=== PATIENT | male | born 1980 | race Asian ===

== ENCOUNTER 2018-08-20 00:21 | Emergency (ER) | payer OTHER ==
[2018-08-20 00:57] LABS: BASOPHILS # (AUTO) 0.1 10^3/uL (0.0-0.1); BASOPHILS % (AUTO) 0.9 %; EOSINOPHILS # (AUTO) 0.1 10^3/uL (0.0-0.7); EOSINOPHILS % (AUTO) 1.3 %; HGB - HEMOGLOBIN 13.4 g/dL (14.0-18.0); LYMPHOCYTES # (AUTO) 1.9 10^3/uL (1.5-3.5); LYMPHOCYTES % (AUTO) 18.9 %; MEAN CORPUSCULAR HEMOGLOBIN 28.1 pg (27.0-31.0); MEAN CORPUSCULAR HGB CONC 33.9 g/dL (32.0-36.0); MEAN PLATELET VOLUME 7.3 fL (7.4-11.4); MONOCYTES # (AUTO) 1.1 10^3/uL (0.0-1.0); MONOCYTES % (AUTO) 10.7 %; NEUTROPHILS # (AUTO) 6.9 10^3/uL (1.5-6.6); NEUTROPHILS % (AUTO) 68.2 %; PLT - PLATELET COUNT 371 10^3/uL (130-450); RED BLOOD COUNT 4.78 10^6/uL (4.70-6.10); RED CELL DISTRIBUTION WIDTH 14.1 % (12.0-15.0); WHITE BLOOD COUNT 10.1 x10^3/uL (4.8-10.8)
--- NOTE | 2018-08-20 01:05 | ED Physician Documentation ---
PD HPI ABD PAIN - Stated complaint Stated Complaint: ABD PX - Chief complaint Chief Complaint: Abd Pain - History obtained from History obtained from: Patient - History of Present Illness Timing - onset: How many weeks ago (2) Timing - duration: Weeks Timing - details: Gradual onset, Intermittant Quality: Pain Location: All over / everywhere Radiation: No: Chest, , Lower back, Left flank, Left shoulder, Right flank, Right shoulder, Upper back Improved by: Other (nothing) Worsened by: Eating (sometimes worse with PO intake) Associated symptoms: Nausea, Vomiting (x1), Diarrhea, Constipation. No: Fever Review of Systems Constitutional: reports: Reviewed and negative Cardiac: reports: Reviewed and negative Respiratory: reports: Reviewed and negative GI: reports: Abdominal Pain, Nausea, Vomiting, Constipation, Diarrhea : denies: Dysuria, Frequency PD PAST MEDICAL HISTORY - Past Medical History Past Medical History: No - Past Surgical History Past Surgical History: No - Present Medications Home Medications: Ambulatory Orders Medication Instructions Recorded Confirmed Ibuprofen 600 mg PO Q8HR PRN #14 tablet 08/20/18 - Allergies Allergies/Adverse Reactions: Allergies Allergy/AdvReac Type Severity Reaction Status Date / Time No Known Drug Allergies Allergy Verified 08/20/18 00:28 - Social History Does the pt smoke?: No Smoking Status: Former smoker Does the pt drink ETOH?: Yes Does the pt have substance abuse?: No - Immunizations Immunizations are current?: Yes - POLST Patient has POLST: No PD ED PE NORMAL - Vitals Vital signs reviewed: Yes - General General: Alert and oriented X 3, No acute distress, Well developed/nourished - HEENT HEENT: Moist mucous membranes - Cardiac Cardiac: RRR, No murmur - Respiratory Respiratory: No respiratory distress, Clear bilaterally - Abdomen Abdomen: Normal bowel sounds, Soft, Non tender, Non distended, No organomegaly - Derm Derm: Normal color, Warm and dry Results - Vitals Vitals: Oxygen O2 Source Room air - Labs Labs: Laboratory Tests 08/20/18 08/20/18 08/20/18 00:45 00:45 01:30 WBC 10.1 RBC 4.78 Hgb 13.4 L Hct 39.7 L MCV 83.0 MCH 28.1 MCHC 33.9 RDW 14.1 Plt Count 371 MPV 7.3 L Neut # (Auto) 6.9 H Lymph # (Auto) 1.9 [place] # (Auto) 1.1 H Eos # (Auto) 0.1 Baso # (Auto) 0.1 Absolute Nucleated RBC 0.00 Nucleated RBC % 0.0 Sodium 138 Potassium 3.5 Chloride 103 Carbon Dioxide 27 Anion Gap 8.0 BUN 18 Creatinine 0.8 Estimated GFR (MDRD) 109 Glucose 101 H Calcium 8.7 Total Bilirubin 0.3 AST 13 ALT 17 Alkaline Phosphatase 68 Total Protein 7.5 Albumin 4.0 Globulin 3.5 Albumin/Globulin Ratio 1.1 Amylase 209 H Lipase 500 H Urine Color Urine Clarity Urine pH Ur Specific [place] Urine Protein Urine Glucose (UA) Urine Ketones Urine Occult Blood Urine Nitrite Urine Bilirubin Urine Urobilinogen Ur Leukocyte Esterase Urine RBC Urine WBC Ur Squamous Epith Cells Urine Bacteria Urine Mucus Ur Microscopic Review Urine Culture Comments 08/20/18 01:30 WBC RBC Hgb Hct MCV MCH MCHC RDW Plt Count MPV Neut # (Auto) Lymph # (Auto) [place] # (Auto) Eos # (Auto) Baso # (Auto) Absolute Nucleated RBC Nucleated RBC % Sodium Potassium Chloride Carbon Dioxide Anion Gap BUN Creatinine Estimated GFR (MDRD) Glucose Calcium Total Bilirubin AST ALT Alkaline Phosphatase Total Protein Albumin Globulin Albumin/Globulin Ratio Amylase Lipase Urine Color YELLOW Urine Clarity CLEAR Urine pH 5.0 Ur Specific [place] >=1.030 H Urine Protein TRACE Urine Glucose (UA) NEGATIVE Urine Ketones NEGATIVE Urine Occult Blood SMALL H Urine Nitrite NEGATIVE Urine Bilirubin NEGATIVE Urine Urobilinogen 0.2 (NORMAL) Ur Leukocyte Esterase NEGATIVE Urine RBC 0-5 Urine WBC 0-3 Ur Squamous Epith Cells MOD Squamous H Urine Bacteria Rare Urine Mucus Marked Strands Ur Microscopic Review INDICATED Urine Culture Comments NOT INDICATED - Rads (name of study) CT A/P Radiology: Prelim report reviewed, See rad report PD MEDICAL DECISION MAKING - ED course Complexity details: reviewed results, re-evaluated patient, considered differential, d/w patient Departure - Departure Disposition: 01 Home, Self Care Clinical Impression: Abdominal pain, Pancreatitis Condition: Good Instructions: ED Pancreatitis Follow-Up: ANNE Morfin [Provider Group] (Call this morning to arrange for next available appointment) Prescriptions: Ibuprofen 600 mg PO Q8HR PRN #14 tablet PRN Reason: Pain Comments: You can take simethicone for gas/bloating. This is available [id number] and thus no prescription has been provided. Follow directions on product label. Forms: Activity restrictions Discharge Date/Time: 08/20/18 03:58
[2018-08-20 01:20] LABS: ALBUMIN/GLOBULIN RATIO 1.1 (1.0-2.2); BILIRUBIN,TOTAL 0.3 mg/dL (0.2-1.0); CALCIUM 8.7 mg/dL (8.5-10.3); CREATININE 0.8 mg/dL (0.6-1.2); TOTAL PROTEIN 7.5 g/dL (6.7-8.2)
[2018-08-20 01:34] LABS: BILIRUBIN,URINE NEGATIVE (NEGATIVE); CLARITY,URINE CLEAR (CLEAR); GLUCOSE, URINE (UA) NEGATIVE (NEGATIVE); KETONES,URINE (UA) NEGATIVE (NEGATIVE); LEUKOCYTE ESTERASE, URINE NEGATIVE (NEGATIVE); NITRITE,URINE NEGATIVE (NEGATIVE); OCCULT BLOOD,URINE SMALL (NEGATIVE); PROTEIN,URINE TRACE mg/dL (NEGATIVE); UROBILINOGEN,URINE 0.2 (NORMAL) E.U./dL (NORMAL)
[2018-08-20 01:36] LABS: RBC,URINE 0-5 /HPF (0-5)
[2018-08-20 01:37] LABS: BACTERIA,URINE Rare /HPF (None Seen); MUCUS,URINE Marked Strands; SQUAMOUS EPITHELIAL CELL,UR MOD Squamous (<= Few)
[2018-08-20] MEDS ORDERED: KETOROLAC 60 MG/2 ML VIAL IVP STA (02:11)
[2018-08-20] MEDS ORDERED: IOPAMIDOL-300 100 ML VIAL ONE (02:18)
[2018-08-20] MEDS ORDERED: IOPAMIDOL-300 100 ML VIAL IVP ONE (02:38)
--- NOTE | 2018-08-20 03:00 | CT Report ---
Reason: abd. pain, elevated lipase/amylase Procedure Date: 08/20/2018 Accession Number: [id number] / [id number] Procedure: CT - Abdomen/Pelvis W/ CPT Code: FULL RESULT: EXAM: CT ABDOMEN AND PELVIS EXAM DATE: 08/20/2018 02:48 AM. CLINICAL HISTORY: Abd. pain, elevated lipase/amylase. COMPARISONS: None. TECHNIQUE: Routine helical CT imaging was performed through the abdomen and pelvis. IV contrast: ISOVUE 300 100mL. Enteric contrast: No. Reconstructions: Coronal and sagittal. In accordance with CT protocol optimization, one or more of the following dose reduction techniques were utilized for this exam: automated exposure control, adjustment of mA and/or KV based on patient size, or use of iterative reconstructive technique. FINDINGS: Lung Bases: Unremarkable. Liver: Normal. No masses. Gallbladder/Bile Ducts: Unremarkable. Spleen: Normal. Pancreas: Normal. No pseudocyst, necrosis or peripancreatic inflammation. Adrenal Glands: Normal. Kidneys: Normal. No masses or hydronephrosis. Peritoneal Cavity/Bowel: Normal. No free fluid, free air or adenopathy. A few colonic diverticula are present, without CT evidence of diverticulitis. No masses or acute inflammatory process. The appendix is well visualized and normal. Pelvic Organs: Normal. The bladder and visualized pelvic organs are within normal limits. Vasculature: No aneurysms or other significant abnormality. Bones: No significant abnormality. Other: None. IMPRESSION: No evident complication of pancreatitis. No peripancreatic inflammation, pseudocyst, or necrosis. RADIA
[2018-08-20] MEDS ORDERED: SIMETHICONE CHEW 80 MG TABLET PO STA (03:41)
[2018-08-20 03:58] VITALS: BP 123/88
== END 2018-08-20 03:58 | disposition home or self-care (01) ==
LOC: ED 00:21
DX: K85.90 Acute pancreatitis without necrosis or infection, unspecified (principal); Z87.891 Personal history of nicotine dependence
CPT/HCPCS: 36415; 74177; 80053; 81001; 82150; 83690; 85025; 96374; 99283; 99284; A9270; Q9967; 81003; 87086

== ENCOUNTER 2018-10-25 14:05 | Outpatient (CLI) | payer OTHER ==
[2018-10-26 12:28] LABS: HEPATITIS A AB TOTAL(IMMUNITY) REACTIVE (NON-REACTIVE); HEPATITIS B CORE AB TOTAL NON-REACTIVE (NON-REACTIVE)
== END 2018-10-25 14:06 | disposition home or self-care (01) ==
LOC: LAB 14:05
PROVIDERS: ATTEND Internal Medicine
DX: K51.00 Ulcerative (chronic) pancolitis without complications (principal)
CPT/HCPCS: 36415; 86140; 86317; 86704; 86708

== ENCOUNTER 2018-12-28 17:07 | Emergency (ER) | payer OTHER ==
[2018-12-28 17:56] LABS: ALBUMIN 3.8 g/dL (3.2-5.5); ALBUMIN/GLOBULIN RATIO 0.8 (1.0-2.2); BILIRUBIN,TOTAL 0.7 mg/dL (0.2-1.0); CALCIUM 8.8 mg/dL (8.5-10.3); TOTAL PROTEIN 8.4 g/dL (6.7-8.2)
[2018-12-28 17:58] LABS: BASOPHILS # (AUTO) 0.1 10^3/uL (0.0-0.1); BASOPHILS % (AUTO) 0.9 %; EOSINOPHILS # (AUTO) 0.1 10^3/uL (0.0-0.7); HGB - HEMOGLOBIN 9.8 g/dL (14.0-18.0); LYMPHOCYTES # (AUTO) 2.6 10^3/uL (1.5-3.5); MEAN CORPUSCULAR HEMOGLOBIN 18.4 pg (27.0-31.0); MEAN CORPUSCULAR HGB CONC 28.9 g/dL (32.0-36.0); MEAN CORPUSCULAR VOLUME 63.8 fL (80.0-94.0); MEAN PLATELET VOLUME 6.8 fL (7.4-11.4); MONOCYTES # (AUTO) 1.2 10^3/uL (0.0-1.0); MONOCYTES % (AUTO) 10.8 %; NEUTROPHILS # (AUTO) 6.9 10^3/uL (1.5-6.6); NEUTROPHILS % (AUTO) 63.3 %; PLT - PLATELET COUNT 598 10^3/uL (130-450); RED BLOOD COUNT 5.29 10^6/uL (4.70-6.10); RED CELL DISTRIBUTION WIDTH 21.2 % (12.0-15.0); WHITE BLOOD COUNT 10.8 x10^3/uL (4.8-10.8)
[2018-12-28 18:48] LABS: PLATELET ESTIMATE, MANUAL INCREASED (>450,000) (NORMAL); PLATELET MORPHOLOGY NORMAL APPEARANCE (NORMAL)
[2018-12-28] MEDS ORDERED: ONDANSETRON 4 MG/2 ML VIAL IVP STA (20:02)
[2018-12-28] MEDS ORDERED: SODIUM CHLORIDE 0.9% 1,000 ML IV ONE (20:02)
[2018-12-28] MEDS ORDERED: methylPREDNISolone SUCCINATE 125 MG/2 ML VIAL IVP STA (20:02)
[2018-12-28] MEDS ORDERED: MORPHINE 2 MG/ML CARPUJECT IVP STA (20:03)
--- NOTE | 2018-12-28 20:06 | ED Physician Documentation ---
PD HPI ABD PAIN - Stated complaint Stated Complaint: CP/VOM/BLOODY GWEN - Chief complaint Chief Complaint: Cardiac - History obtained from History obtained from: Patient - History of Present Illness Timing - onset: Other (This is a 38-year-old gentleman who is active duty in the [employer] who was diagnosed with ulcerative colitis about 3 months ago. He was started on prednisone and has been on prednisone for most the time since then and recently tapered off about a week ago. He is also on mesalamine. Since he stopped the prednisone about a week ago he has had increasing abdominal pain and since yesterday chest pain associated with bloody diarrhea and nausea.) Review of Systems Constitutional: denies: Fever, Chills Cardiac: reports: Chest pain / pressure. denies: Palpitations, Pedal edema, Calf pain Respiratory: denies: Dyspnea, Cough PD PAST MEDICAL HISTORY - Past Medical History Past Medical History: Yes Cardiovascular: None Respiratory: None Neuro: None Endocrine/Autoimmune: Other GI: Other : None HEENT: None Psych: None Musculoskeletal: None Derm: None Other Past Medical History: smoker x 6-7 MONTHS... - Past Surgical History Past Surgical History: No - Present Medications Home Medications: Ambulatory Orders Medication Instructions Recorded Confirmed Ascorbic Acid [Vitamin C] 1,000 mg PO 12/28/18 Cholecalciferol (Vitamin D3) 1,000 unit PO 12/28/18 [Vitamin D3] Ergocalciferol [Vitamin D2] 50,000 unit PO Q7D 12/28/18 12/28/18 Ferrous Sulfate 324 mg PO 12/28/18 Hydrocodone/Acetaminophen 1 - 2 each PO Q6H PRN #10 tablet 12/28/18 [Hydrocodon-Acetaminophen 5-325] Mesalamine [Lialda] 1.2 gm PO 12/28/18 Ondansetron Odt [Zofran] 4 mg TL Q6H PRN #10 tablet 12/28/18 predniSONE [Deltasone] 20 mg PO DAILY #30 tablet 12/28/18 - Allergies Allergies/Adverse Reactions: Allergies Allergy/AdvReac Type Severity Reaction Status Date / Time No Known Drug Allergies Allergy Verified 12/28/18 17:24 - Social History Does the pt smoke?: No Smoking Status: Never smoker Does the pt drink ETOH?: Yes Does the pt have substance abuse?: No - Immunizations Immunizations are current?: Yes - POLST Patient has POLST: No PD ED PE NORMAL - Vitals Vital signs reviewed: Yes - General General: Alert and oriented X 3, No acute distress - Neck Neck: Supple, no meningeal sign, No bony TTP - Cardiac Cardiac: RRR, No murmur - Respiratory Respiratory: No respiratory distress, Clear bilaterally - Abdomen Abdomen: Normal bowel sounds, Soft, Non tender - Back Back: No CVA TTP, No spinal TTP - Derm Derm: Normal color, Warm and dry - Extremities Extremities: No edema, No calf tenderness / cord Results - Vitals Vitals: Vital Signs - 24 hr 12/28/18 12/28/18 12/28/18 17:22 19:59 20:00 Temperature 37.4 C Heart Rate 134 H 112 H 110 H Respiratory 20 17 14 Rate Blood Pressure 130/85 H 123/87 H 123/87 H O2 Saturation 99 99 98 12/28/18 12/28/18 12/28/18 20:22 20:48 21:00 Temperature Heart Rate 101 H 93 93 Respiratory 17 18 17 Rate Blood Pressure 126/87 H 124/77 O2 Saturation 99 99 100 Oxygen O2 Source Room air - EKG (time done) 1737 Rate: Rate (enter#) (115) Rhythm: Sinus tachycardia [place]: Normal Intervals: Normal UT QRS: Normal Ischemia: ST elevation c/w repol. No: T wave inversion Computer interpretation: Agree with computer - Labs Labs: Laboratory Tests 12/28/18 12/28/18 12/28/18 17:38 17:38 17:38 WBC 10.8 RBC 5.29 Hgb 9.8 L Hct 33.7 L MCV 63.8 L MCH 18.4 L MCHC 28.9 L RDW 21.2 H Plt Count 598 H MPV 6.8 L Neut # (Auto) 6.9 H Lymph # (Auto) 2.6 [place] # (Auto) 1.2 H Eos # (Auto) 0.1 Baso # (Auto) 0.1 Absolute Nucleated RBC 0.00 Nucleated RBC % 0.0 Manual Slide Review Indicated Platelet Estimate INCREASED (>450,000) Platelet Morphology NORMAL APPEARANCE RBC Morph Micro Appear 2+ MICROCYTOSIS Sodium 133 L Potassium 3.0 L Chloride 96 L Carbon Dioxide 26 Anion Gap 11.0 BUN 13 Creatinine 1.0 Estimated GFR (MDRD) 84 L Glucose 112 H Calcium 8.8 Total Bilirubin 0.7 AST 19 ALT 13 Alkaline Phosphatase 54 Troponin I < 0.04 Total Protein 8.4 H Albumin 3.8 Globulin 4.6 H Albumin/Globulin Ratio 0.8 L Lipase 64 H PD MEDICAL DECISION MAKING - ED course ED course: This is a 38-year-old gentleman with history of ulcerative colitis who worsened after the cessation of steroids recently and steroids were restarted. He was also dehydrated and in some IV fluids. He was feeling better and the potassium was repleted orally. He did have some chest pain but his cardiac workup was negative. Departure - Departure Disposition: Home, Self Care Clinical Impression: Atypical chest pain Abdominal pain Qualifiers: Abdominal location: generalized Qualified Code(s): R10.84 - Generalized abdominal pain Ulcerative colitis Qualifiers: Ulcerative colitis location: unspecified ulcerative colitis location Digestive disease complication type: unspecified complication Qualified Code(s): K51.919 - Ulcerative colitis, unspecified with unspecified complications Condition: Good Record reviewed to determine appropriate education?: Yes Instructions: Colitis Ulcerative Dc Prescriptions: Hydrocodone/Acetaminophen [Hydrocodon-Acetaminophen 5-325] 1 - 2 each PO Q6H PRN #10 tablet PRN Reason: pain Ondansetron Odt [Zofran] 4 mg TL Q6H PRN #10 tablet PRN Reason: Nausea / Vomiting predniSONE [Deltasone] 20 mg PO DAILY #30 tablet Comments: We will restart the prednisone at 20 mg a day. Keep on this until you see your GI doctor. Return for new or worsening symptoms.
[2018-12-28] MEDS ORDERED: POTASSIUM BICARB 25 MEQ TABLET PO STA (20:46)
[2018-12-28] MEDS ORDERED: KETOROLAC 30 MG/ML VIAL IVP STA (20:47)
[2018-12-28 20:50] VITALS: BP 124/77
[2018-12-28] MEDS ORDERED: HYDROcod/ACETAM 5/325 MG TABLET PO STA (21:02)
[2018-12-28] MEDS ORDERED: ONDANSETRON ODT 4 MG Prepack 2 TL STA (21:04)
== END 2018-12-28 21:22 | disposition home or self-care (01) ==
LOC: ED 17:07
DX: K51.919 Ulcerative colitis, unspecified with unspecified complications (principal); E86.0 Dehydration; R07.89 Other chest pain; R00.0 Tachycardia, unspecified; Z87.891 Personal history of nicotine dependence
CPT/HCPCS: 36415; 80053; 83690; 84484; 85025; 93005; 96361; 96374; 96375; 99283; 99284; A9270

== ENCOUNTER 2018-12-30 09:56 | Emergency (ER) | payer OTHER ==
--- NOTE | 2018-12-30 10:11 | ED Physician Documentation ---
History of Present Illness - Stated complaint Stated Complaint: CP - Chief complaint Chief Complaint: Cardiac - History obtained from History obtained from: Patient - History of Present Illness Pain level max: 0 - Additonal information Additional information: Patient is a 38-year-old male who within the last several months was diagnosed with ulcerative colitis and follows with gastroenterology. Patient was recently tapered off his steroidsAnd shortly thereafter began experiencing chest abdominal discomfort with bloody diarrhea. Patient was seen 2 days ago in this ED for similar complaints as to today. Patient had workup which was relatively unremarkable and given prescription for steroids, as well as potassium replenished orally while in ED. Patient is also on mesalamineCompliantly. Since that time, patient reports significant improvement of abdominal discomfort, as well as diarrhea, although both somewhat still present. No new vomiting, but decreased urination from usual. No fever, difficulty breathing, cough, URI symptoms, but patient does report substernal/upper abdominal discomfort that worsens with movement and deep breathing. Patient also denies recent travel, leg swelling or pain. Patient denies history of GERD or GERD-like symptoms currently. There are no particular improving or worsening factors to his discomfort. Review of Systems Ten Systems: 10 systems reviewed and negative Constitutional: denies: Fever Cardiac: reports: Chest pain / pressure. denies: Pedal edema Respiratory: denies: Dyspnea, Cough GI: reports: Abdominal Pain, Diarrhea. denies: Vomiting PD PAST MEDICAL HISTORY - Past Medical History Cardiovascular: None Respiratory: None Neuro: None GI: Ulcerative colitis, Other : None HEENT: None Psych: None Musculoskeletal: None Derm: None - Past Surgical History Past Surgical History: No - Present Medications Home Medications: Ambulatory Orders Medication Instructions Recorded Confirmed Ascorbic Acid [Vitamin C] 1,000 mg PO DAILY 12/28/18 12/30/18 Cholecalciferol (Vitamin D3) 1,000 unit PO DAILY 12/28/18 12/30/18 [Vitamin D3] Ergocalciferol [Vitamin D2] 50,000 unit PO Q7D 12/28/18 12/30/18 Hydrocodone/Acetaminophen 1 - 2 each PO Q6H PRN #10 tablet 12/28/18 12/30/18 [Hydrocodon-Acetaminophen 5-325] Mesalamine [Lialda] 1.2 gm PO DAILY 12/28/18 12/30/18 Ondansetron Odt [Zofran] 4 mg TL Q6H PRN #10 tablet 12/28/18 12/30/18 RX: Ferrous Sulfate 324 mg PO DAILY 12/28/18 12/30/18 RX: predniSONE [Deltasone] 20 mg PO DAILY #30 tablet 12/28/18 12/30/18 - Allergies Allergies/Adverse Reactions: Allergies Allergy/AdvReac Type Severity Reaction Status Date / Time No Known Drug Allergies Allergy Verified 12/30/18 10:05 - Social History Does the pt smoke?: No Smoking Status: Never smoker Does the pt drink ETOH?: Yes Does the pt have substance abuse?: No - Immunizations Immunizations are current?: Yes - POLST Patient has POLST: No PD ED PE NORMAL - General General: Alert and oriented X 3, No acute distress, Well developed/nourished - HEENT HEENT: Atraumatic, EOMI, Ears normal, Moist mucous membranes, Pharynx benign, Dentition benign - Neck Neck: Supple, no meningeal sign - Cardiac Cardiac: RRR, No murmur, Other (Reproducible discomfort over lower sternum with palpation) - Respiratory Respiratory: No respiratory distress, Clear bilaterally - Abdomen Abdomen: Normal bowel sounds, Soft, Non tender, Non distended - Derm Derm: Normal color, Warm and dry, No rash - Extremities Extremities: No deformity, No tenderness to palpate - Neuro Neuro: Alert and oriented X 3, No motor deficit, Normal speech - Psych Psych: Normal mood, Normal affect Results - Vitals Vitals: Vital Signs - 24 hr 12/30/18 12/30/18 12/30/18 10:02 11:08 12:42 Temperature 36.4 C L Heart Rate 100 92 92 Respiratory 14 18 12 Rate Blood Pressure 127/87 H 123/77 130/84 H O2 Saturation 99 100 98 Oxygen O2 Source Room air - EKG (time done) 1003 Rate: Rate (enter#) (103) Rhythm: NSR Ischemia: Non specific changes - Labs Labs: Laboratory Tests 12/30/18 12/30/18 12/30/18 10:25 10:25 10:25 WBC 12.9 H RBC 4.46 L Hgb 8.4 L Hct 28.5 L MCV 63.9 L MCH 18.8 L MCHC 29.3 L RDW 20.8 H Plt Count 539 H MPV 6.8 L Neut # (Auto) Not Reportable Lymph # (Auto) Not Reportable [place] # (Auto) Not Reportable Eos # (Auto) Not Reportable Baso # (Auto) Not Reportable Absolute Nucleated RBC Not Reportable Total Counted 100 Band Neuts % (Manual) 7 Abnorm Lymph % (Manual) 0 Nucleated RBC % Not Reportable Neutrophils # (Manual) 9.0 H Lymphocytes # (Manual) 1.7 Monocytes # (Manual) 1.9 H Eosinophils # (Manual) 0.3 Basophils # (Manual) 0.0 Differential Comment MANUAL DIFFERENTIAL Manual Slide Review Indicated Platelet Estimate INCREASED (>450,000) Platelet Morphology NORMAL APPEARANCE RBC Morph Micro Appear 2+ HYPOCHROMASIA Sodium 135 Potassium 3.2 L Chloride 102 Carbon Dioxide 25 Anion Gap 8.0 BUN 16 Creatinine 0.9 Estimated GFR (MDRD) 94 Glucose 114 H Calcium 8.3 L Total Bilirubin 0.5 AST 18 ALT 10 Alkaline Phosphatase 42 Troponin I < 0.04 Total Protein 7.3 Albumin 3.3 Globulin 4.0 Albumin/Globulin Ratio 0.8 L Lipase 107 H PD MEDICAL DECISION MAKING - ED course Complexity details: reviewed old records, re-evaluated patient, considered differential, d/w patient, d/w family ED course: Patient presenting with complaint of chest discomfort, which is reproducible with palpation and with movement. Feel the patient's chest discomfort may be more related to acid reflux, particularly given his description of symptoms, location, and history of ulcerative colitis. Patient is amenable to trying GI cocktail. Other pain medications also ordered. Lower suspicion for PE and patient can be ruled out by PERC criteria. Also have lower suspicion for pneumonia given symptomatology, but will obtain chest x-ray to further evaluate. Chest x-ray returned unremarkable. Also have low suspicion for ACS, myocardial infarction, unstable angina, but obtained EKG and troponin, both of which were unremarkable. Did not feel patient absolutely needed aspirin given low suspicion for true cardiac disease and the risk with his ulcerative colitis. Patient also requesting IV fluids as he feels dehydrated from persistent, although improving diarrhea and this was provided.Remainder of lab work relatively unremarkable except for mild hypokalemia, which was dressed several days ago and otherwise can be addressed with oral supplementation as an outpatient. Do not feel patient requires further interventions, consults, or admission at this time. Discussed results and recommendations with patient and he is also comfortable with discharge. Discussed close follow-up, as well as return precautions. Departure - Departure Disposition: 01 Home, Self Care Clinical Impression: Chest wall pain Gastroesophageal reflux disease Qualifiers: Esophagitis presence: esophagitis presence not specified Qualified Code(s): K21.9 - Gastro-esophageal reflux disease without esophagitis Ulcerative colitis Qualifiers: Ulcerative colitis location: unspecified ulcerative colitis location Digestive disease complication type: without complication Qualified Code(s): K51.90 - Ulcerative colitis, unspecified, without complications Condition: Good Instructions: ED Chest Pain NonCardiac, ED GERD Follow-Up: ANNE BAHENA MD [Primary Care Provider] - Tomorrow Comments: Please continue home medications as previously instructed, including steroids. May also try [id number] medications to help with possible acid reflux such as Tums. Avoid foods that are spicy, juices, caffeine, alcohol, which could ups et your stomach further. Please follow-up with your primary care physician and psychiatric assistant tomorrow. Please return to ED sooner if expands worsening symptoms or other concerns. Discharge Date/Time: 12/30/18 13:00
[2018-12-30] MEDS ORDERED: fentaNYL 100 MCG/2 ML VIAL IVP STA (10:23)
[2018-12-30] MEDS ORDERED: SODIUM CHLORIDE 0.9% 1,000 ML IV ONE (10:23)
[2018-12-30 10:35] LABS: BASOPHILS % (AUTO) 0.6 %; EOSINOPHILS % (AUTO) 1.2 %; HGB - HEMOGLOBIN 8.4 g/dL (14.0-18.0); LYMPHOCYTES % (AUTO) 14.1 %; MEAN CORPUSCULAR HEMOGLOBIN 18.8 pg (27.0-31.0); MEAN CORPUSCULAR HGB CONC 29.3 g/dL (32.0-36.0); MEAN CORPUSCULAR VOLUME 63.9 fL (80.0-94.0); MEAN PLATELET VOLUME 6.8 fL (7.4-11.4); MONOCYTES % (AUTO) 13.3 %; NEUTROPHILS % (AUTO) 70.8 %; PLT - PLATELET COUNT 539 10^3/uL (130-450); RED BLOOD COUNT 4.46 10^6/uL (4.70-6.10); RED CELL DISTRIBUTION WIDTH 20.8 % (12.0-15.0); WHITE BLOOD COUNT 12.9 x10^3/uL (4.8-10.8)
[2018-12-30] MEDS ORDERED: LIDOCAINE VISCOUS 2% 15 ML UDC MM STA (10:37)
[2018-12-30] MEDS ORDERED: MAG HYDROX/AL HYDROX/SIMETH 30 ML UDC PO STA (10:37)
[2018-12-30 10:38] LABS: ABNORMAL LYMPHS % (MANUAL) 0 %
[2018-12-30 10:46] LABS: ALBUMIN 3.3 g/dL (3.2-5.5); ALBUMIN/GLOBULIN RATIO 0.8 (1.0-2.2); BILIRUBIN,TOTAL 0.5 mg/dL (0.2-1.0); CALCIUM 8.3 mg/dL (8.5-10.3); CREATININE 0.9 mg/dL (0.6-1.2); TOTAL PROTEIN 7.3 g/dL (6.7-8.2)
[2018-12-30 10:55] LABS: BAND NEUTROPHILS % (MANUAL) 7 %; EOSINOPHILS # (MANUAL) 0.3 10^3/uL (0-0.7); LYMPHOCYTES # (MANUAL) 1.7 10^3/uL (1.5-3.5); LYMPHOCYTES % (MANUAL) 13 %; MONOCYTES # (MANUAL) 1.9 10^3/uL (0.0-1.0); NEUTROPHILS % (MANUAL) 63 %; PLATELET ESTIMATE, MANUAL INCREASED (>450,000) (NORMAL); PLATELET MORPHOLOGY NORMAL APPEARANCE (NORMAL)
[2018-12-30 10:56] LABS: DIFFERENTIAL COMMENT MANUAL DIFFERENTIAL
[2018-12-30] MEDS ORDERED: GI COCKTAIL 120 ML BOTTLE PO SCH (11:00)
--- NOTE | 2018-12-30 11:08 | XRAY Report ---
Reason: cough Procedure Date: 12/30/2018 Accession Number: [id number] / [id number] Procedure: XR - Chest 2 View X-Ray CPT Code: 57523 FULL RESULT: EXAM: CHEST RADIOGRAPHY EXAM DATE: 12/30/2018 10:44 AM. CLINICAL HISTORY: Cough. COMPARISON: None. TECHNIQUE: 2 views. FINDINGS: Lungs/Pleura: No focal opacities evident. No pleural effusion. No pneumothorax. Low lung volumes. Mediastinum: Heart and mediastinal contours are unremarkable. Other: None. IMPRESSION: No acute cardiopulmonary abnormality. RADIA
[2018-12-30 12:43] VITALS: BP 130/84
== END 2018-12-30 13:00 | disposition home or self-care (01) ==
LOC: ED 09:56
DX: K21.9 Gastro-esophageal reflux disease without esophagitis (principal); R07.89 Other chest pain; E87.6 Hypokalemia; K51.90 Ulcerative colitis, unspecified, without complications
CPT/HCPCS: 36415; 71046; 80053; 83690; 84484; 85025; 93005; 96361; 96374; 99283; A9270

== ENCOUNTER 2020-09-21 15:23 | Outpatient (CLI) | payer OTHER ==
--- NOTE | 2020-09-21 17:10 | MRI Report ---
PROCEDURE: Lumbar Spine W/O INDICATIONS: LOW BACK PAIN, RT RADICULOPATHY TECHNIQUE: Noncontrast sagittal T1 spin echo and T2 fast echo, sagittal STIR, axial T1 and T2 fast spin echo thr ough the lumbar spine. In cases with scoliosis, additional coronal T2 fast spin echo may be performe d. COMPARISON: None. FINDINGS: Image quality: Excellent. Alignment and Curvature: There is normal bony alignment. Bone Marrow: Marrow is of normal overall signal. No acute vertebral body compression fractures. Spinal Cord: Conus medullaris terminates at the L1 level. Visualized cord demonstrates normal signa l and size. Paraspinous Soft Tissues: No paravertebral masses. Discs: Minimal desiccation is present L4-5, L5-S1. L1-L2: No disc bulge, spinal stenosis or foraminal narrowing. L2-L3: No disc bulge, spinal stenosis or foraminal narrowing. L3-L4: Minimal disc bulge or spinal stenosis. Minimal bilateral foraminal narrowing. Epidural lipom atosis is noted. L4-L5: Minimal disc bulge including a small right lateral component. Minimal left foraminal narrowi ng with facet hypertrophy. Minimal epidural lipomatosis. L5-S1: Minimal disc bulge without spinal stenosis. Minimal left foraminal narrowing. IMPRESSION: 1. Early degenerative changes most notable at L4-5 demonstrating a disc bulge with small right latera l component and minimal left foraminal narrowing. Reviewed by: Leona Abarca MD on 09/21/2020 5:09 PM PST Approved by: Leona Abarca MD on 09/21/2020 5:09 PM PST Station ID: [id number]
== END 2020-09-21 15:24 | disposition home or self-care (01) ==
LOC: DI 15:23
PROVIDERS: ATTEND Student in an Organized Health Care Education/Training Program
DX: M51.26 Other intervertebral disc displacement, lumbar region (principal)
CPT/HCPCS: 72148

== ENCOUNTER 2022-06-24 20:26 | Outpatient (CLI) | payer OTHER | END 2022-06-24 20:27 | disposition home or self-care (01) | LOC: SC 20:26 | PROVIDERS: ATTEND Internal Medicine Pulmonary Disease | DX: G47.61 Periodic limb movement disorder (principal) | CPT/HCPCS: 95810 ==

== ENCOUNTER 2022-07-08 13:37 | Outpatient (CLI) | payer OTHER ==
[2022-07-08 14:33] VITALS: BP 128/84
--- NOTE | 2022-07-08 14:33 | SLEEP CARE CONSULTATION ---
Information from patient questionnaire entered by Gómez Kamara. I have reviewed and concur with the information entered by Gómez Kamara. This document represents the service I personally performed and the decisions made by , Elizabeth Olivas ARNP. History of Present Illness Service Date and Time: 07/08/2022 1337 Initial [place] Sleepiness Scale score: 13 (05/23/2022) Current [place] Sleepiness Scale score: 17 (07/08/22) Additional HPI information: FRANCOISE BRANHAM returns for follow up and results of the recently performed polysomnography. The patient was informed of the following findings: No significant sleep disordered breathing with an average AHI of 4.0 and andriy oxygen saturation of 91%. He had an elevated supine AHI at 10.7. Severe periodic leg movements of sleep that was not associated with sleep fragmentation was noted. I explained the pathophysiology behind obstructive sleep apnea. Patient does not have sleep apnea and was advised how weight gain could increase the risk of developing sleep apnea in the future. I strongly encouraged the patient to lose weight. Patient has light snoring. Snoring can be reduced by weight loss. Weight loss is best achieved with diet consult. Patient instructed to contact PCP for referral. Snoring can also be treated with an oral appliance from a dentist. Advised to check insurance coverage. In addition, an ENT evaluation can be do to see if other treatment is indicated. Patient counseled not drink alcohol less than 4 hours before bedtime as it can increase snoring and apnea. Patient was cautioned about risks of drowsy driving until sleepiness symptoms resolve. Patient denies drowsy driving. Sleep Study - Results Type of Sleep Study: Polysomnography (DONE ON 06/24/22) Polysomnography/Home Sleep Study results: IMPRESSION: The quality of the study is good. The patient had slightly reduced sleep efficiency due to frequent awakenings in the first half of the night. The sleep architecture was otherwise relatively normal. Respiratory monitoring showed no significant sleep disordered breathing (AHI = 4.0) or hypoxia (andryi oxygen saturation of 91%). The few respiratory events occurred almost exclusively during supine sleep (supine AHI = 10.7; non-supine = 3.65). Snore was infrequent and light in intensity. There was severe periodic leg movement of sleep not associated with sleep fragmentation. Cardiac rhythm was normal sinus rhythm without significant arrhythmia. No abnormal behavior (parasomnia) observed during the night. Allergies and Home Medications Home medication list reviewed: Yes (no changes) Allergy and home medication list: Allergies No Known Drug Allergies Allergy (Verified 12/30/18 10:05) Review of Systems Review of systems same as previous: Yes (ulcerative colitis) Physical Exam Vital signs obtained and entered by: JORGE ALBERTO FIERRO Blood Pressure: 128/84 (left arm ) Cuff size: regular Heart Rate: 84 O2 Saturation: 98 Height: 5 ft 4 in Weight: 194 lb Body Mass Index: 33.3 BMI Classification: Obese Impression and Plan 1. Periodic limb movement, severe, that did not fragment patients sleep. Periodic limb movement of sleep (PLMS) is characterized by episodes of repetitive limb movements that occur during sleep and usually involve the lower limbs. The etiology is unknown. Patient has a history of anemia secondary to ulcerative colitis which could reduce iron stores. Caffeine can aggravate PLMS and should be avoided. Sleep hygiene methods can also improve sleep as well as lifestyle changes such as regular exercise. Patient was advised that no treatment is needed at this time. If symptoms increase, then further evaluation is indicated. 2. Snoring but no significant sleep disordered breathing. However, patient did have elevated supine AHI at 10.7 and was advised to avoid supine sleep. Patient advised that often weight loss will reduce snoring as well as apnea risk. An oral appliance can also be used for snoring. This would require a dental consultation. Patient cautioned not to use other online appliances as can cause bite issues. A list of accredited dentists in [facility] who make oral appliances is available in the office. Patient is advised to check if insurance will cover. An ENT consult can also be helpful to determine if any other treatment is an option. * Follow up with PCP for PLMs * Attempt to lose weight * Avoid alcohol consumption near bedtime * The patient is cautioned about driving until sleepiness is completely resolved. * Return as needed for follow up. Counseling Topics: Weight loss health impact Visit Type: In Office Time Spent with Patient (minutes): 20 Provider Statement: I spent 100% of the Face to Face Visit with the patient with greater than 50% spent counseling the patient and coordination of care.
== END 2022-07-08 13:38 | disposition home or self-care (01) ==
LOC: SC 13:37
PROVIDERS: ATTEND Nurse Practitioner Family
DX: G47.61 Periodic limb movement disorder (principal); R06.83 Snoring; E66.9 Obesity, unspecified; Z68.33 Body mass index [BMI] 33.0-33.9, adult
CPT/HCPCS: 99212; 99213